=== PATIENT | female | born 2000 | race African-American/Black ===

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

== ENCOUNTER 2022-02-16 21:10 | Emergency (ER) | payer MEDICAID, OTHER ==
[~2022-02-16] VITALS: Ht 165.1 cm; Wt 70.0 kg
[2022-02-16 22:42] LABS: CLARITY URINE CLEAR (CLEAR); COLOR URINE YELLOW (YELLOW); KETONES URINE 2+ (NEGATIVE); LEUKOCYTE ESTERASE URINE NEGATIVE (NEGATIVE); NITRITE URINE NEGATIVE (NEGATIVE); OCCULT BLOOD URINE NEGATIVE (NEGATIVE); PH URINE 5.5 (4.5-8.0); PROTEIN URINE NEGATIVE (NEGATIVE); SPECIFIC GRAVITY URINE 1.029 (1.005-1.030); UROBILINOGEN URINE 0.2 E.U./dL (0.2-1.0)
[2022-02-17] MEDS ORDERED: METR-167 PO (02:12)
[2022-02-17] MEDS ORDERED: CLOT21CR4 VG (02:12)
[2022-02-17 02:15] VITALS: BP 110/68
[2022-02-20 04:07] LABS: NEISSERIA GONORRHOEAE NAA Negative (Negative)
== END 2022-02-17 02:26 | disposition home or self-care (01) ==
LOC: ER 21:10
DX: N76.0 Acute vaginitis (principal)
CPT/HCPCS: 81003; 87210; 87491; 87591; 99283; Z7610

== ENCOUNTER 2022-04-15 21:24 | Emergency (ER) | payer OTHER ==
[~2022-04-15] VITALS: Ht 165.1 cm; Wt 68.1 kg
[~2022-04-15 21:24] MED LIST changes: +CLOT21CR4 VG; +METR-167 PO
[2022-04-16 02:47] VITALS: BP 112/70
== END 2022-04-16 02:48 | disposition home or self-care (01) ==
LOC: ER 21:24
DX: M79.18 Myalgia, other site (principal); R05.9 Cough, unspecified; R19.7 Diarrhea, unspecified; Z20.822 Contact with and (suspected) exposure to COVID-19; Z79.899 Other long term (current) drug therapy
CPT/HCPCS: 71045; 99283

== ENCOUNTER 2022-07-03 23:40 | Emergency (ER) | payer OTHER ==
[~2022-07-03] VITALS: Ht 165.1 cm; Wt 68.0 kg
[2022-07-04] MEDS: FLUCONAZOLE 150MG TABLET PO NR ×2 (03:00→03:20)
[2022-07-04] MEDS ORDERED: FLUCONAZOLE 100MG TABLET PO ONE (03:00)
[2022-07-04 03:21] VITALS: BP 125/65
[2022-07-07 05:12] LABS: NEISSERIA GONORRHOEAE NAA Negative (Negative)
== END 2022-07-04 03:22 | disposition home or self-care (01) ==
LOC: ER 23:40
DX: N89.8 Other specified noninflammatory disorders of vagina (principal); Z79.899 Other long term (current) drug therapy
CPT/HCPCS: 81025; 87210; 87491; 87591; 99283; Z7610

== ENCOUNTER 2022-08-09 10:04 | Emergency (ER) | payer MEDICAID, OTHER ==
[~2022-08-09] VITALS: Ht 175.3 cm; Wt 67.0 kg
[2022-08-09 10:07] VITALS: BP 117/61
[2022-08-09] MEDS ORDERED: FAMOTIDINE 20MG TABLET PO ONE (10:45)
[2022-08-09] MEDS ORDERED: VISCOUS LIDOCAINE 2% 15 ML UDC MM PRN (10:45)
[2022-08-09] MEDS ORDERED: MAGNESIUM/ALUMINUM HYDROXIDE/SIMETHICONE 30ML UDC PO ONE (10:45)
[2022-08-09 10:52] LABS: BASOPHILS % 0.6 % (0.0-2.0); EOSINOPHILS % 1.1 % (0.0-5.0); HEMATOCRIT. 35.2 % (36.0-48.0); HEMOGLOBIN. 12.4 g/dL (12.0-16.0); LYMPHOCYTES % 38.5 % (20.0-50.0); MEAN CORPUSCULAR HEMOGLOBIN 29.3 pg (28.0-32.0); MEAN CORPUSCULAR VOLUME 83.5 fL (81.0-99.0); MEAN PLATELET VOLUME 7.5 fl (7.4-10.4); MONOCYTES % 4.9 % (2.0-8.0); NEUTROPHILS % 54.9 % (40.0-76.0); PLATELET 253 x1000/uL (130-400); RED BLOOD CELL COUNT 4.22 mill/uL (4.2-5.4)
[2022-08-09 10:54] LABS: CLARITY URINE CLEAR (CLEAR); COLOR URINE YELLOW (YELLOW); KETONES URINE NEGATIVE (NEGATIVE); LEUKOCYTE ESTERASE URINE TRACE (NEGATIVE); NITRITE URINE POSITIVE (NEGATIVE); OCCULT BLOOD URINE NEGATIVE (NEGATIVE); PROTEIN URINE NEGATIVE (NEGATIVE); SPECIFIC GRAVITY URINE 1.011 (1.005-1.030); UROBILINOGEN URINE 0.2 E.U./dL (0.2-1.0)
[2022-08-09 11:00] LABS: CHLORIDE 105 mEq/L (98-107)
[2022-08-09] MEDS ORDERED: MAGNESIUM/ALUMINUM HYDROXIDE/SIMETHICONE 30ML UDC PO NR (11:15)
[2022-08-09] MEDS ORDERED: CEPH250C2 MT (11:21)
[2022-08-09] MEDS ORDERED: FAMO-135 MT (11:21)
== END 2022-08-09 11:39 | disposition home or self-care (01) ==
LOC: ER 10:04
DX: R10.13 Epigastric pain (principal); N39.0 Urinary tract infection, site not specified
CPT/HCPCS: 36415; 80053; 81003; 81025; 85025; 99283

== ENCOUNTER 2022-10-03 15:32 | Emergency (ER) | payer OTHER ==
[~2022-10-03] VITALS: Ht 166.4 cm; Wt 64.0 kg
[~2022-10-03 15:32] MED LIST changes: +FAMO-135 MT
[2022-10-03 15:49] VITALS: BP 126/83
== END 2022-10-03 22:30 | disposition left against medical advice (07) ==
LOC: ER 15:32
DX: Z53.21 Procedure and treatment not carried out due to patient leaving prior to being seen by health care provider (principal)

== ENCOUNTER 2022-10-11 19:39 | Emergency (ER) | payer OTHER ==
[~2022-10-11] VITALS: Ht 165.1 cm; Wt 63.3 kg
[2022-10-11] MEDS ORDERED: ONDANSETRON 4MG ODT PO STA (23:22)
[2022-10-11] MEDS ORDERED: MAGNESIUM/ALUMINUM HYDROXIDE/SIMETHICONE 30ML UDC PO STA (23:22)
[2022-10-11] MEDS ORDERED: VISCOUS LIDOCAINE 2% 15 ML UDC PO STA (23:22)
[2022-10-11] MEDS ORDERED: KETOROLAC 30MG/ML VIAL IM ONE (23:45)
[2022-10-12 00:08] LABS: BASOPHILS % 0.5 % (0.0-2.0); HEMATOCRIT. 40.7 % (36.0-48.0); HEMOGLOBIN. 13.7 g/dL (12.0-16.0); LYMPHOCYTES % 46.8 % (20.0-50.0); MEAN CORPUSCULAR HEMOGLOBIN 28.4 pg (28.0-32.0); MONOCYTES % 5.3 % (2.0-8.0); NEUTROPHILS % 46.4 % (40.0-76.0); PLATELET 316 x1000/uL (130-400); RED BLOOD CELL COUNT 4.84 mill/uL (4.2-5.4); RED CELL DISTRIBUTION WIDTH 12.8 % (11.6-14.6)
[2022-10-12 00:58] LABS: CLARITY URINE CLOUDY (CLEAR); COLOR URINE RED (YELLOW); KETONES URINE 1+ (NEGATIVE); LEUKOCYTE ESTERASE URINE 1+ (NEGATIVE); NITRITE URINE NEGATIVE (NEGATIVE); OCCULT BLOOD URINE 3+ (NEGATIVE); PH URINE 5.5 (4.5-8.0); PROTEIN URINE 1+ (NEGATIVE); SPECIFIC GRAVITY URINE 1.027 (1.005-1.030); UROBILINOGEN URINE 0.2 E.U./dL (0.2-1.0)
[2022-10-12] MEDS ORDERED: DOCU100T MT (02:28)
[2022-10-12 03:20] VITALS: BP 108/64
== END 2022-10-12 03:22 | disposition home or self-care (01) ==
LOC: ER 19:44
DX: N39.0 Urinary tract infection, site not specified (principal); Z79.899 Other long term (current) drug therapy
CPT/HCPCS: 36415; 80053; 81003; 81025; 83690; 85025; 96372; 99284; J1885; Q0162

== ENCOUNTER 2022-11-20 01:26 | Emergency (ER) | payer OTHER ==
[~2022-11-20] VITALS: Ht 167.6 cm; Wt 63.3 kg
[~2022-11-20 01:26] MED LIST changes: +DOCU100T MT
[2022-11-20 05:13] LABS: CLARITY URINE TURBID (CLEAR); COLOR URINE YELLOW (YELLOW); KETONES URINE 1+ (NEGATIVE); LEUKOCYTE ESTERASE URINE 2+ (NEGATIVE); NITRITE URINE NEGATIVE (NEGATIVE); OCCULT BLOOD URINE 2+ (NEGATIVE); PROTEIN URINE 1+ (NEGATIVE); SPECIFIC GRAVITY URINE 1.024 (1.005-1.030)
[2022-11-20] MEDS ORDERED: IBUPROFEN 600MG TABLET PO ONE (05:15)
[2022-11-20 05:29] VITALS: BP 117/71
[2022-11-20] MEDS ORDERED: NITR-87 MT (05:33)
[2022-11-20] MEDS ORDERED: IBUP-2029 MT (05:33)
== END 2022-11-20 05:49 | disposition home or self-care (01) ==
LOC: ER 01:26
DX: N39.0 Urinary tract infection, site not specified (principal); Z87.440 Personal history of urinary (tract) infections
CPT/HCPCS: 81003; 81025; 99283

== ENCOUNTER 2022-12-23 21:15 | Emergency (ER) | payer OTHER ==
[~2022-12-23] VITALS: Ht 165.1 cm; Wt 69.0 kg
[~2022-12-23 21:15] MED LIST changes: +IBUP-2029 MT; +NITR-87 MT
[2022-12-23 21:24] VITALS: BP 122/73
[2022-12-24] MEDS ORDERED: TOPUD MT (14:08)
[2022-12-24] MEDS ORDERED: ONDA4TAB11 PO (14:08)
[2022-12-24] MEDS ORDERED: PNV1TABL76 MT (14:08)
== END 2022-12-23 23:00 | disposition left against medical advice (07) ==
LOC: ER 21:15
DX: Z53.21 Procedure and treatment not carried out due to patient leaving prior to being seen by health care provider (principal)

== ENCOUNTER 2022-12-24 12:10 | Emergency (ER) | payer OTHER ==
[~2022-12-24] VITALS: Ht 165.1 cm; Wt 70.0 kg
[2022-12-24 13:18] VITALS: BP 120/70
[2022-12-24] MEDS ORDERED: ONDA4TAB11 PO (14:08)
[2022-12-24] MEDS ORDERED: PNV1TABL76 MT (14:08)
[2022-12-24] MEDS ORDERED: TOPUD MT (14:08)
== END 2022-12-24 14:58 | disposition home or self-care (01) ==
LOC: ER 12:10
DX: R10.9 Unspecified abdominal pain (principal)
CPT/HCPCS: 99281

== ENCOUNTER 2022-12-26 10:59 | Emergency (ER) | payer MEDICAID, OTHER ==
[~2022-12-26] VITALS: Ht 167.6 cm; Wt 75.0 kg
[~2022-12-26 10:59] MED LIST changes: +ONDA4TAB11 PO; +PNV1TABL76 MT; +TOPUD MT
[2022-12-26 11:10] VITALS: BP 151/72
[2022-12-26 12:22] LABS: CLARITY URINE CLOUDY (CLEAR); COLOR URINE DARK YELLOW (YELLOW); KETONES URINE 4+ (NEGATIVE); LEUKOCYTE ESTERASE URINE NEGATIVE (NEGATIVE); NITRITE URINE NEGATIVE (NEGATIVE); OCCULT BLOOD URINE NEGATIVE (NEGATIVE); PROTEIN URINE TRACE (NEGATIVE); SPECIFIC GRAVITY URINE 1.027 (1.005-1.030)
[2022-12-26 13:06] LABS: BASOPHILS % 0.6 % (0.0-2.0); EOSINOPHILS % 0.3 % (0.0-5.0); HEMATOCRIT. 37.3 % (36.0-48.0); HEMOGLOBIN. 12.6 g/dL (12.0-16.0); LYMPHOCYTES % 24.1 % (20.0-50.0); MEAN CORPUSCULAR HEMOGLOBIN 28.4 pg (28.0-32.0); MEAN CORPUSCULAR VOLUME 84.1 fL (81.0-99.0); MEAN PLATELET VOLUME 7.3 fl (7.4-10.4); PLATELET 238 x1000/uL (130-400); RED BLOOD CELL COUNT 4.44 mill/uL (4.2-5.4); RED CELL DISTRIBUTION WIDTH 13.5 % (11.6-14.6)
[2022-12-26 13:12] LABS: CHLORIDE 104 mEq/L (98-107)
[2022-12-26 13:15] LABS: HCG SCREEN POSITIVE
[2022-12-26 13:35] LABS: B-HCG QUANTITATIVE 61654 mIU/mL (<3)
[2022-12-26] MEDS ORDERED: PNV1TABL50 MT (14:10)
== END 2022-12-26 14:45 | disposition home or self-care (01) ==
LOC: ER 10:59
DX: O26.891 Other specified pregnancy related conditions, first trimester (principal); Z3A.01 Less than 8 weeks gestation of pregnancy; Z79.899 Other long term (current) drug therapy
CPT/HCPCS: 36415; 76801; 80053; 81003; 81025; 84702; 84703; 85025; 99284

== ENCOUNTER 2023-02-11 22:09 | Emergency (ER) | payer MEDICAID, MEDICARE ==
[~2023-02-11] VITALS: Ht 165.1 cm; Wt 61.5 kg
[~2023-02-11 22:09] MED LIST changes: +PNV1TABL50 MT
[2023-02-11 23:04] VITALS: BP 109/62
[2023-02-11 23:32] LABS: BASOPHILS % 0.5 % (0.0-2.0); EOSINOPHILS % 0.6 % (0.0-5.0); HEMOGLOBIN. 12.7 g/dL (12.0-16.0); LYMPHOCYTES % 30.1 % (20.0-50.0); MEAN CORPUSCULAR HEMOGLOBIN 29.1 pg (28.0-32.0); MEAN CORPUSCULAR VOLUME 82.7 fL (81.0-99.0); MEAN PLATELET VOLUME 7.6 fl (7.4-10.4); MONOCYTES % 6.1 % (2.0-8.0); NEUTROPHILS % 62.7 % (40.0-76.0); PLATELET 227 x1000/uL (130-400); RED BLOOD CELL COUNT 4.35 mill/uL (4.2-5.4); RED CELL DISTRIBUTION WIDTH 13.7 % (11.6-14.6)
[2023-02-11 23:36] LABS: CHLORIDE 107 mEq/L (98-107)
[2023-02-11 23:37] LABS: CLARITY URINE CLEAR (CLEAR); COLOR URINE YELLOW (YELLOW); KETONES URINE TRACE (NEGATIVE); LEUKOCYTE ESTERASE URINE TRACE (NEGATIVE); NITRITE URINE NEGATIVE (NEGATIVE); OCCULT BLOOD URINE NEGATIVE (NEGATIVE); PH URINE 5.5 (4.5-8.0); PROTEIN URINE NEGATIVE (NEGATIVE); SPECIFIC GRAVITY URINE 1.028 (1.005-1.030); UROBILINOGEN URINE 0.2 E.U./dL (0.2-1.0)
[2023-02-11 23:52] LABS: HCG SCREEN POSITIVE
[2023-02-12] MEDS ORDERED: CEPH500C2 MT (01:43)
[2023-02-12] MEDS ORDERED: CLOT21CR VG (01:43)
== END 2023-02-12 02:21 | disposition home or self-care (01) ==
LOC: ER 22:09
DX: N94.89 Other specified conditions associated with female genital organs and menstrual cycle (principal); Z79.899 Other long term (current) drug therapy
CPT/HCPCS: 36415; 80053; 81003; 81025; 84703; 85025; 99283; Z7610

== ENCOUNTER 2023-04-10 09:11 | Emergency (ER) | payer MEDICAID, MEDICARE ==
[~2023-04-10] VITALS: Ht 165.1 cm; Wt 65.0 kg
[~2023-04-10 09:11] MED LIST changes: +CLOT21CR VG
[2023-04-10 09:20] VITALS: BP 119/55
[2023-04-10 11:27] LABS: CLARITY URINE CLOUDY (CLEAR); COLOR URINE YELLOW (YELLOW); KETONES URINE TRACE (NEGATIVE); LEUKOCYTE ESTERASE URINE 3+ (NEGATIVE); NITRITE URINE NEGATIVE (NEGATIVE); OCCULT BLOOD URINE NEGATIVE (NEGATIVE); PH URINE 6.5 (4.5-8.0); PROTEIN URINE TRACE (NEGATIVE); SPECIFIC GRAVITY URINE 1.024 (1.005-1.030)
[2023-04-10] MEDS ORDERED: CLOT21CR4 VG (11:58)
[2023-04-10] MEDS ORDERED: NITR100C MT (11:58)
== END 2023-04-10 12:11 | disposition home or self-care (01) ==
LOC: ER 09:13
DX: L29.9 Pruritus, unspecified (principal); Z79.899 Other long term (current) drug therapy
CPT/HCPCS: 81003; 81025; 87491; 87591; 99283

== ENCOUNTER 2024-05-03 07:26 | Emergency (ER) | payer MEDICAID, MEDICARE ==
[~2024-05-03] VITALS: Ht 165.1 cm; Wt 70.0 kg
[~2024-05-03 07:26] MED LIST changes: +NITR100C MT
[2024-05-03 07:33] VITALS: BP 130/78; PULSE 67; RESP 18; TEMP 97.7; O2SAT 100
[2024-05-03] MEDS ORDERED: NITR100C PO (08:47)
[2024-05-03] MEDS: NITROFURANTOIN 100MG M/M CAPSULE PO NR (08:56)
[2024-05-03 09:04] LABS: CLARITY URINE TURBID (CLEAR); COLOR URINE DARK YELLOW (YELLOW); GLUCOSE URINE NEGATIVE (NEGATIVE); KETONES URINE TRACE (NEGATIVE); LEUKOCYTE ESTERASE URINE 2+ (NEGATIVE); NITRITE URINE NEGATIVE (NEGATIVE); OCCULT BLOOD URINE 3+ (NEGATIVE); PH URINE 6.5 (4.5-8.0); PROTEIN URINE 3+ (NEGATIVE); SPECIFIC GRAVITY URINE 1.034 (1.005-1.030)
[2024-05-03 09:33] LABS: RBC URINE TNTC /hpf (0-2); SQUAMOUS EPITHELIAL CELL URINE 1+ /lpf (RARE/1+); WBC URINE TNTC /hpf (0-2)
[2024-05-03 09:35] LABS: BACTERIA URINE 3+
== END 2024-05-03 09:20 | disposition home or self-care (01) ==
LOC: ER 07:26
DX: N39.0 Urinary tract infection, site not specified (principal); Z79.899 Other long term (current) drug therapy
CPT/HCPCS: 81003; 81025; 87077; 87186; 99283

== ENCOUNTER 2024-05-21 20:27 | Emergency (ER) | payer MEDICAID ==
[~2024-05-21] VITALS: Ht 165.1 cm; Wt 74.3 kg
[~2024-05-21 20:27] MED LIST changes: +NITR100C PO
[2024-05-21 21:26] VITALS: BP 140/71; PULSE 65; RESP 18; TEMP 98.8; O2SAT 100
[2024-05-21 22:11] LABS: BASOPHILS % 0.3 % (0.0-2.0); EOSINOPHILS % 1.3 % (0.0-5.0); HEMATOCRIT. 35.3 % (36.0-48.0); HEMOGLOBIN. 11.9 g/dL (12.0-16.0); LYMPHOCYTES % 47.5 % (20.0-50.0); MEAN CORPUSCULAR HEMOGLOBIN 28.2 pg (28.0-32.0); MEAN CORPUSCULAR HGB CONC 33.8 g/dL (31.0-37.0); MEAN CORPUSCULAR VOLUME 83.2 fL (81.0-99.0); MONOCYTES % 6.1 % (2.0-8.0); NEUTROPHILS % 44.8 % (40.0-76.0); RED BLOOD CELL COUNT 4.24 mill/uL (4.2-5.4); RED CELL DISTRIBUTION WIDTH 14.3 % (11.6-14.6); WHITE BLOOD COUNT 5.6 x1000/uL (4.5-11.0)
[2024-05-21 22:14] LABS: DIFFERENTIAL COMMENT 1
[2024-05-21 22:20] LABS: CHLORIDE 108 mEq/L (98-107); POTASSIUM 3.7 mEq/L (3.5-5.1); SODIUM 142 mEq/L (136-145)
[2024-05-21 22:21] LABS: CALCIUM 9.1 mg/dL (8.7-10.4); CARBON DIOXIDE 26 mEq/L (21-32)
[2024-05-21 22:26] LABS: CREATININE 0.9 mg/dL (0.6-1.0); GLUCOSE 71 mg/dL (70-105); UREA NITROGEN BLOOD 9 mg/dL (9-23)
[2024-05-21 22:27] LABS: HCG SCREEN NEGATIVE
[2024-05-21 22:28] LABS: ALANINE AMINOTRANSFERASE 13 IU/L (10-49); ALBUMIN 4.5 g/dL (3.2-4.8); ASPARTATE AMINOTRANSFERASE 18 IU/L (<34); BILIRUBIN DIRECT 0.3 mg/dL (<=3.0); BILIRUBIN TOTAL 0.6 mg/dL (0.1-1.0); PROTEIN TOTAL 6.8 g/dL (6.0-8.3)
[2024-05-21 22:35] LABS: B-HCG QUANTITATIVE 2 mIU/mL (<3); MEAN PLATELET VOLUME 7.6 fl (7.4-10.4); PLATELET 271 x1000/uL (130-400)
[2024-05-22] MEDS: RHO(D) IMMUNE GLOBULIN 300 MCG/SYR IM ONE (00:30)
[2024-05-22] MEDS ORDERED: ACETAMINOPHEN 325MG TABLET PO PRN (00:30)
[2024-05-22 01:00] LABS: CLARITY URINE CLEAR (CLEAR); COLOR URINE YELLOW (YELLOW); GLUCOSE URINE NEGATIVE (NEGATIVE); KETONES URINE NEGATIVE (NEGATIVE); LEUKOCYTE ESTERASE URINE TRACE (NEGATIVE); NITRITE URINE NEGATIVE (NEGATIVE); OCCULT BLOOD URINE 3+ (NEGATIVE); PH URINE 6.5 (4.5-8.0); PROTEIN URINE TRACE (NEGATIVE); SPECIFIC GRAVITY URINE 1.025 (1.005-1.030)
[2024-05-22 03:14] LABS: SQUAMOUS EPITHELIAL CELL URINE 1+ /lpf (RARE/1+)
[2024-05-22 03:15] LABS: BACTERIA URINE NONE SEEN; RBC URINE TNTC /hpf (0-2); WBC URINE 0-2 /hpf (0-2)
== END 2024-05-22 03:53 | disposition home or self-care (01) ==
LOC: ER 20:27
DX: N93.9 Abnormal uterine and vaginal bleeding, unspecified (principal); Z79.899 Other long term (current) drug therapy
CPT/HCPCS: 36415; 36430; 76830; 76856; 80048; 80076; 81003; 84702; 84703; 85025; 86850; 86900; 90384; 96372; 99285; J2791

== ENCOUNTER 2024-07-26 21:55 | Emergency (ER) | payer MEDICAID ==
[~2024-07-26] VITALS: Ht 165.1 cm; Wt 74.8 kg
[~2024-07-26 21:55] MED LIST changes: +ONDA-239 PO; -ONDA4TAB11 PO
[2024-07-26 22:25] VITALS: BP 124/76; TEMP 98.6; O2SAT 100
[2024-07-26 22:36] VITALS: PULSE 85; RESP 16; O2SAT 100
[2024-07-26] MEDS ORDERED: METR-167 MT (23:25)
[2024-07-26 23:27] LABS: CLARITY URINE CLOUDY (CLEAR); COLOR URINE YELLOW (YELLOW); GLUCOSE URINE NEGATIVE (NEGATIVE); KETONES URINE NEGATIVE (NEGATIVE); LEUKOCYTE ESTERASE URINE 1+ (NEGATIVE); NITRITE URINE NEGATIVE (NEGATIVE); OCCULT BLOOD URINE NEGATIVE (NEGATIVE); PROTEIN URINE TRACE (NEGATIVE); SPECIFIC GRAVITY URINE 1.028 (1.005-1.030)
[2024-07-26 23:57] LABS: BACTERIA URINE 1+; RBC URINE 0-2 /hpf (0-2); SQUAMOUS EPITHELIAL CELL URINE 2+ /lpf (RARE/1+)
== END 2024-07-27 00:17 | disposition home or self-care (01) ==
LOC: ER 21:55
DX: N76.0 Acute vaginitis (principal); Z79.899 Other long term (current) drug therapy
CPT/HCPCS: 81003; 81025; 87491; 87591; 99283

== ENCOUNTER 2024-09-27 18:05 | Emergency (ER) | payer MEDICAID ==
[~2024-09-27] VITALS: Ht 165.1 cm; Wt 75.0 kg
[2024-09-27 18:13] VITALS: BP 137/72; PULSE 67; RESP 18; TEMP 98.8; O2SAT 100
[2024-09-27 19:08] LABS: CLARITY URINE TURBID (CLEAR); COLOR URINE YELLOW (YELLOW); GLUCOSE URINE NEGATIVE (NEGATIVE); KETONES URINE TRACE (NEGATIVE); LEUKOCYTE ESTERASE URINE 3+ (NEGATIVE); NITRITE URINE NEGATIVE (NEGATIVE); OCCULT BLOOD URINE 3+ (NEGATIVE); PH URINE 5.5 (4.5-8.0); PROTEIN URINE 2+ (NEGATIVE); SPECIFIC GRAVITY URINE 1.031 (1.005-1.030)
[2024-09-27 19:50] LABS: WBC URINE TNTC /hpf (0-2)
[2024-09-27 19:52] LABS: BACTERIA URINE 2+; RBC URINE 15-25 /hpf (0-2); SQUAMOUS EPITHELIAL CELL URINE 2+ /lpf (RARE/1+)
[2024-09-27] MEDS: CEFTRIAXONE SODIUM 1G VIAL IM ONE (21:23)
[2024-09-27] MEDS: LIDOCAINE HCL 1% 20ML VIAL INFIL ONE (21:34)
[2024-09-27] MEDS ORDERED: METR70GE27 VG (22:46)
[2024-09-27] MEDS ORDERED: NAPR-681 PO (22:46)
[2024-09-27] MEDS ORDERED: SULF1TAB48 MT (22:46)
== END 2024-09-27 23:36 | disposition home or self-care (01) ==
LOC: ER 18:05
DX: N39.0 Urinary tract infection, site not specified (principal); N76.0 Acute vaginitis; Z79.899 Other long term (current) drug therapy
CPT/HCPCS: 87491; 87591; 81003; 81025; 87086; 87210; 96372; 99283; J0696; J3490; Z7610

== ENCOUNTER 2025-06-07 06:43 | Emergency (ER) | payer MEDICAID ==
[~2025-06-07] VITALS: Ht 165.1 cm; Wt 66.0 kg
[~2025-06-07 06:43] MED LIST changes: +METR70GE27 VG; +NAPR-681 PO; +SULF1TAB48 MT
[2025-06-07 07:02] VITALS: O2SAT 100
[2025-06-07 07:25] LABS: CLARITY URINE CLOUDY (CLEAR); COLOR URINE DARK YELLOW (YELLOW); GLUCOSE URINE NEGATIVE (NEGATIVE); KETONES URINE TRACE (NEGATIVE); LEUKOCYTE ESTERASE URINE 1+ (NEGATIVE); NITRITE URINE NEGATIVE (NEGATIVE); OCCULT BLOOD URINE NEGATIVE (NEGATIVE); PH URINE 5.5 (4.5-8.0); PROTEIN URINE 1+ (NEGATIVE); SPECIFIC GRAVITY URINE 1.031 (1.005-1.030); UROBILINOGEN URINE 1.0 E.U./dL (0.2-1.0)
[2025-06-07] MEDS ORDERED: DOXY100T2 MT (07:39)
[2025-06-07] MEDS ORDERED: METR-167 MT (07:39)
[2025-06-07 07:48] LABS: MUCUS URINE 3+ /lpf (< = 2+); SQUAMOUS EPITHELIAL CELL URINE 2+ /lpf (RARE/1+)
[2025-06-07 07:49] LABS: HYALINE CASTS URINE 0-5 /lpf
[2025-06-07 07:50] LABS: BACTERIA URINE 1+; RBC URINE 0-2 /hpf (0-2)
[2025-06-07] MEDS: CEFTRIAXONE SODIUM 500MG VIAL IM ONE (07:50)
[2025-06-07] MEDS: LIDOCAINE HCL 1% 20ML VIAL INFIL ONE (07:51)
[2025-06-07 08:39] VITALS: BP 103/67; PULSE 82; RESP 16; TEMP 36.9; O2SAT 100
[2025-06-09 06:12] LABS: CHLAMYDIA TRACHOMATIS NAA Negative (Negative); NEISSERIA GONORRHOEAE NAA Negative (Negative)
== END 2025-06-07 08:40 | disposition home or self-care (01) ==
LOC: ER 06:56
DX: N89.8 Other specified noninflammatory disorders of vagina (principal); Z79.899 Other long term (current) drug therapy
CPT/HCPCS: 87491; 87591; 81003; 81025; 96372; 99284; J0696; J2003; Z7610 ×2

== ENCOUNTER 2025-07-10 20:55 | Emergency (ER) | payer MEDICAID ==
[~2025-07-10] VITALS: Ht 165.1 cm; Wt 68.0 kg
[~2025-07-10 20:55] MED LIST changes: +DOXY100T2 MT
[2025-07-10 21:06] VITALS: TEMP 37.1; O2SAT 99
[2025-07-10 21:44] LABS: CLARITY URINE TURBID (CLEAR); COLOR URINE DARK YELLOW (YELLOW); GLUCOSE URINE NEGATIVE (NEGATIVE); KETONES URINE TRACE (NEGATIVE); LEUKOCYTE ESTERASE URINE 2+ (NEGATIVE); NITRITE URINE NEGATIVE (NEGATIVE); OCCULT BLOOD URINE 3+ (NEGATIVE); PH URINE 5.5 (4.5-8.0); PROTEIN URINE 2+ (NEGATIVE); SPECIFIC GRAVITY URINE 1.027 (1.005-1.030); UROBILINOGEN URINE 1.0 E.U./dL (0.2-1.0)
[2025-07-10 22:03] LABS: BACTERIA URINE 1+; SQUAMOUS EPITHELIAL CELL URINE 1+ /lpf (RARE/1+)
[2025-07-10 22:07] LABS: HCG SCREEN NEGATIVE
[2025-07-10] MEDS ORDERED: CEPH500T MT (22:25)
[2025-07-10 23:13] VITALS: BP 117/76; PULSE 57; RESP 15; O2SAT 99
== END 2025-07-10 23:17 | disposition home or self-care (01) ==
LOC: ER 20:55
DX: N39.0 Urinary tract infection, site not specified (principal)
CPT/HCPCS: 81003; 81025; 84703; 99283

== ENCOUNTER 2025-10-14 11:30 | Emergency (ER) | payer MEDICAID ==
[~2025-10-14] VITALS: Ht 165.1 cm; Wt 71.0 kg
[~2025-10-14 11:30] MED LIST changes: +CEPH500T MT; +IBUP-1455 MT; -IBUP-2029 MT
[2025-10-14 11:31] VITALS: O2SAT 99
[2025-10-14 11:38] VITALS: BP 122/74; PULSE 80; RESP 16; TEMP 36.7; O2SAT 99
== END 2025-10-14 15:58 | disposition left against medical advice (07) ==
LOC: ER 12:52
DX: Z30.431 Encounter for routine checking of intrauterine contraceptive device (principal)
CPT/HCPCS: 99282